=== PATIENT | female | born 1955 | race American Indian/Alaskan Native ===

== ENCOUNTER 2019-06-19 18:38 | Emergency (ER) | payer OTHER ==
[~2019-06-19] VITALS: Ht 162.6 cm; Wt 70.8 kg
[~2019-06-19 18:38] MED LIST: CLARITIN10 MG PO; CRESTOR10 MG PO; DOXYCYCLINE HY100 MG PO; ELIMITE60 GM TOP; EPIPEN 2-P0.3 MG/0.3 IM; KEFLEX500 MG PO; LEVOTHYROXINE100 MCG PO; OMEPRAZOLE20 MG PO; PROMETHAZINE-COD5 ML PO; SIMVASTATIN10 MG PO; SUDAFED30 MG PO; ZOFRAN ODT4 MG PO
--- OUTSIDE RECORDS SUMMARY | 2019-06-19 18:42 | XMS ---
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 Linda has no Care Guidelines for this patient. [place] [facility] [facility] NOTE: Visits indicate total known visits. ED/C VISIT TRACKING (12 MO.) 06/19/2019 18:39 [facility] [place] TYPE: Emergency COMPLAINT: - MULTIPLE COMPLAINTS 06/18/2019 12:05 [facility] TYPE: Emergency COMPLAINT: - VOMITING INPATIENT VISIT TRACKING (12 MO.) 07/11/2018 06:01 [facility] TYPE: Recovery DIAGNOSES: - Primary osteoarthritis, right shoulder - M19.011 [email or web address]
[2019-06-19] MEDS ORDERED: ZOFRAN4 MG PO (21:21)
== END 2019-06-19 21:40 | disposition home or self-care (01) ==
LOC: ED 18:38
DX: B34.9 Viral infection, unspecified (principal); K21.9 Gastro-esophageal reflux disease without esophagitis; E89.0 Postprocedural hypothyroidism; Z85.850 Personal history of malignant neoplasm of thyroid; Z90.710 Acquired absence of both cervix and uterus; Z90.49 Acquired absence of other specified parts of digestive tract; Z90.89 Acquired absence of other organs; Z88.1 Allergy status to other antibiotic agents; Z88.0 Allergy status to penicillin; Z79.899 Other long term (current) drug therapy
CPT/HCPCS: 71046; 80053; 83690; 85025; 87502; 96374; 96375; 99284-25; J1200; J1885; J2765

== ENCOUNTER 2022-10-19 08:21 | Emergency (ER) | payer OTHER ==
[~2022-10-19] VITALS: Ht 162.6 cm; Wt 77.7 kg
[~2022-10-19 08:21] MED LIST changes: +ZOFRAN4 MG PO
--- OUTSIDE RECORDS SUMMARY | 2022-10-19 08:30 | XMS ---
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 Care History Medical/Surgical 06/20/2019 [facility] - PATIENT IS A [facility] ELIGIBLE, \T\middot;\T\nbsp; PLEASE REFER PATIENT TO [facility] FOR NON EMERGENT MEDICAL NEEDS. \T\middot;\T\nbsp; [facility] CAN SEE PATIENTS SAME DAY FOR APTS IF PATIENT CALLS FIRST THING IN THE MORNING. E.D. VISIT COUNT (12 MO.) [address] [place] [address] TOTAL 1 NOTE: Visits indicate total known visits. ED/UCC VISIT TRACKING (12 MO.) 10/19/2022 08:[address] [facility] [place] TYPE: Emergency COMPLAINT: - FLASH R EYE INPATIENT VISIT TRACKING (12 MO.) No inpatient visits to display in this time frame [email or web address]
[2022-10-19] MEDS ORDERED: SUMATRIPTAN SU100 MG PO (08:33)
[2022-10-19] MEDS ORDERED: ROSUVASTATIN CAL5 MG PO (08:33)
[2022-10-19] MEDS ORDERED: PANTOPRAZOLE SO40 MG PO (08:33)
[2022-10-19] MEDS ORDERED: FAMOTIDINE20 MG PO (08:33)
[2022-10-19] MEDS ORDERED: LEVOTHYROXINE75 MCG PO (08:33)
[2022-10-19] MEDS ORDERED: SUMATRIPTA6 MG/0.51 SUB-Q (08:33)
[2022-10-19] MEDS ORDERED: CETIRIZINE HCL10 MG PO (08:34)
[2022-10-19] MEDS ORDERED: PROPRANOLOL HCL20 MG PO (08:34)
[2022-10-19 09:03] VITALS: BP 145/89
== END 2022-10-19 09:04 | disposition home or self-care (01) ==
LOC: ED 08:21
DX: H43.391 Other vitreous opacities, right eye (principal); K21.9 Gastro-esophageal reflux disease without esophagitis; E78.5 Hyperlipidemia, unspecified; Z85.850 Personal history of malignant neoplasm of thyroid; Z88.1 Allergy status to other antibiotic agents; Z88.0 Allergy status to penicillin; Z79.899 Other long term (current) drug therapy
CPT/HCPCS: 99283

== ENCOUNTER 2025-01-08 16:47 | Emergency (ER) | payer OTHER ==
[~2025-01-08] VITALS: Ht 162.6 cm; Wt 74.0 kg
[~2025-01-08 16:47] MED LIST changes: +CETIRIZINE HCL10 MG PO; +FAMOTIDINE20 MG PO; +LEVOTHYROXINE75 MCG PO; +PANTOPRAZOLE SO40 MG PO; +PROPRANOLOL HCL20 MG PO; +ROSUVASTATIN CAL5 MG PO; +SUMATRIPTA6 MG/0.51 SUB-Q; +SUMATRIPTAN SU100 MG PO
[2025-01-08] MEDS ORDERED: ASPIRIN 81 MG CHEW PO ONE (17:00)
[2025-01-08] MEDS ORDERED: CLOBETASOL PROP15 G3 (17:01)
[2025-01-08] MEDS ORDERED: YUVAFEM10 MCG (17:01)
[2025-01-08 17:06] LABS: BASOPHILS 0.6 % (0.1-1.2); EOSINOPHILS 2.5 % (0.7-5.8); LYMPHOCYTES 39.4 % (19.3-51.7); MCH 26.8 PG (25.6-32.2); MCHC 31.7 g/dL (32.2-35.5); MCV 84.3 fL (79.4-94.8); MONOCYTES 7.4 % (4.7-12.5); NEUTROPHILS 49.9 % (34.0-71.1); RBC 4.97 M/uL (3.93-5.22)
[2025-01-08 17:25] LABS: ALT (SGPT) 52 U/L (14-59); AST (SGOT) 25 U/L (15-37); GLOMERULAR FILTRATION RATE,EST 63 mL/min (>60); PROTEIN, TOTAL 7.8 g/dL (6.4-8.2); UREA NITROGEN 12 mg/dL (7-18)
[2025-01-08] MEDS ORDERED: NAPROSYN500 MG PO (17:29)
[2025-01-08 18:37] VITALS: BP 111/69
--- NOTE | 2025-01-09 15:39 | EKG ---
[facility] [address] [facility] [place] [address] Signed Normal sinus rhythm Nonspecific T wave abnormality Abnormal ECG No previous ECGs available Confirmed by Nikole Wall MD () on 01/09/2025 3:39:27 PM Electronically Signed By: NIKOLE WALL MD 01/09/25 1539 PATIENT NAME: JORGE VAZQUEZ Electrocardiogram DATE OF : 59 PHYSICIAN: NIKOLE WALL MD REPORT #: [id number] REPORT IS CONFIDENTIAL AND NOT TO BE RELEASED WITHOUT AUTHORIZATION
== END 2025-01-08 18:36 | disposition home or self-care (01) ==
LOC: ED 16:47
PROVIDERS: Emergency Medicine
DX: R07.89 Other chest pain (principal); Z88.0 Allergy status to penicillin; Z88.1 Allergy status to other antibiotic agents; Z79.890 Hormone replacement therapy; Z79.899 Other long term (current) drug therapy
CPT/HCPCS: 36415; 71045; 80053; 83690; 83735; 84484; 85025; 93005; 93010; 99285-25; A9270